=== PATIENT | male | born 1960 | race Caucasian/White ===

== ENCOUNTER 2018-11-11 13:36 | Emergency (ER) | payer OTHER, BC ==
[~2018-11-11] VITALS: Ht 175.3 cm; Wt 74.1 kg
[2018-11-11 13:39] VITALS: Ht 175.3 cm; Wt 74.1 kg
[2018-11-11] MEDS ORDERED: SOD CHLORIDE 0.9% 1,000 ML IV STA (14:50)
[2018-11-11] MEDS ORDERED: MECLIZINE 12.5 MG TAB PO ONE (15:00)
[2018-11-11] MEDS ORDERED: LORAZEPAM 2 MG INJ IV ONE (15:00)
--- NOTE | 2018-11-11 15:22 | ERD ---
ER Documentation Chief Complaint Chief Complaint DIZZINESS SINCE FRIDAY , VOMITING TODAY HPI 58-year-old male no significant past medical history who presents to the emergency room and dizziness. The patient describes approximately 4 to 5 days of symptoms that include sudden onset and sudden offset of room spinning sensation. This usually occurs when turning his head from side to side. Worse when looking left. Patient denies any headache fevers chills chest pain or shortness of breath. He denies any slurred speech, ataxic gait or clumsiness symptoms are moderate. ROS All systems reviewed and are negative except as per history of present illness. Medications Home Meds Active Scripts Meclizine Hcl* (Meclizine Hcl*) 25 Mg Tablet, 25 MG PO Q8H PRN for DIZZINESS, #20 TAB Prov:SOFIYA SEVILLA MD 11/11/18 Allergies Allergies: Coded Allergies: No Known Allergy (Unverified , 11/11/18) PMhx/Soc Medical and Surgical Hx: pt denies Medical Hx, pt denies Surgical Hx Hx Alcohol Use: No Hx Substance Use: No Hx Tobacco Use: No Smoking Status: Never smoker FmHx Family History: No diabetes Physical Exam Vitals Vital Signs Date Temp Pulse Resp B/P (MAP) Pulse Ox O2 O2 Flow FiO2 Time Delivery Rate 11/11/18 97.9 76 18 134/77 98 13:39 (96) Physical Exam General: Well developed, well nourished, no acute distress Head: Normocephalic, atraumatic. Eyes: Pupils equally reactive, EOM intact ENT: Moist mucous membranes Neck: Supple, no lymphadenopathy Respiratory: Lungs clear bilaterally, no distress Cardiovascular: RRR, no murmurs, rubs, or gallops Abdominal: Soft, non-tender, non-distended, no peritoneal signs : Deferred MSK: No edema, no unilateral swelling, 5/5 strength Neurologic: Alert and oriented, moving all extremities, normal speech, no focal weakness, no cerebellar signs, reproducible horizontal nystagmus when looking to the left. No vertical nystagmus or rotary nystagmus. Normal rapid alternating movements. Steady gait. Skin: No rash Psych: Normal mood Results 24 hrs Laboratory Tests Test 11/11/18 15:14 Bedside Glucose 159 mg/dL Current Medications Medications Dose Sig/Melody Start Time Status Last (Trade) Ordered Route PRN Stop Time Admin Dose Reason Admin Sodium 1,000 ml @ Q1H STAT 11/11/18 DC 11/11/18 Chloride 1,000 mls/hr IV 14:50 14:57 11/11/18 15:49 Lorazepam 0.5 mg ONCE ONCE 11/11/18 DC 11/11/18 (Ativan) IV 15:00 14:57 11/11/18 15:01 Meclizine 25 mg ONCE ONCE 11/11/18 DC 11/11/18 HCl PO 15:00 14:57 (Antivert) 11/11/18 15:01 Procedures/MDM EKG, MONITORS, & DIAGNOSTIC IMAGING: CT brain: No acute process per radiologist read MEDICAL DECISION MAKING: Patient's presentation is consistent with likely benign positional vertigo. He has reproducible horizontal nystagmus and reproducible symptoms. He has no other neurologic findings that are suggestive of stroke or central process. Patient will benefit from CT brain to rule out mass or significant hemorrhage. Low concern for this process. Patient will benefit from symptom control. If symptoms persist greater than 1 week outpatient follow-up with primary care physician and possible referral to neurologist was recommended. ER COURSE: * IV fluids Ativan and meclizine provided with dramatic improvement of symptomatology. At this point the patient can be safely discharged home. CT brain is negative. * Return precautions were discussed and understood CONSULTATION: None DISPOSITION PLAN: The patient does not have an identifiable emergent medical condition that warrants inpatient hospitalization at this time. The patient is deemed safe for discharge with outpatient follow-up. We discussed follow up with the patient's primary care doctor within 24 to 48 hours as needed. We also discussed return to the emergency room for worsening symptoms or worsening condition. Outpatient referral: None required Discharge Medications: Meclizine Departure Diagnosis: Primary Impression: BPV (benign positional vertigo) Laterality: unspecified laterality Qualified Codes: H81.10 - Benign paroxysmal vertigo, unspecified ear Condition: Stable SOFIYA SEVILLA MD Nov 11, 2018 15:22
[2018-11-11] MEDS ORDERED: MECL-77 PO (16:25)
[2018-11-11 16:55] VITALS: BP 110/79; PULSE 67; RESP 16
== END 2018-11-11 16:56 | disposition home or self-care (01) ==
LOC: E/R 13:36
DX: H81.10 Benign paroxysmal vertigo, unspecified ear (principal); R40.2142 Coma scale, eyes open, spontaneous, at arrival to emergency department; R40.2362 Coma scale, best motor response, obeys commands, at arrival to emergency department; R40.2252 Coma scale, best verbal response, oriented, at arrival to emergency department
CPT/HCPCS: 70450; 82962; 96374; 99285; J2060; J7030

== ENCOUNTER 2018-12-16 14:20 | Emergency (ER) | payer OTHER, BC ==
[~2018-12-16] VITALS: Wt 75.0 kg
[~2018-12-16 14:20] MED LIST: LORA1TAB PO; MECL-77 PO; MECL12.574 PO
[2018-12-16] MEDS ORDERED: SOD CHLORIDE 0.9% 1,000 ML IV STA (15:05)
--- NOTE | 2018-12-16 15:19 | ERD ---
ER Documentation Chief Complaint Chief Complaint dizziness and nausea HPI 58-year-old male with no significant past medical history who presents to the emergency room with compaint of dizziness. Patient states that started last night. Patient states he had a similar episode approximately 1 month ago for which he came to the ER and was diagnosed with BPV. In addition they did a CT scan in the ER and results were negative. Desribes the dizziness as a spinning sensation which is made worse when he turns his head suddenly. States that he took one meclizine at 6 AM this morning but did not help. Patient states he is having some difficulty ambulating due to the unsteady gait. Patient denies any headache, fevers, chills, chest pain, ear pain, tinnitus, lightheadedness, shortness of breath, numbness, weakness, vision difficulties, neck stiffness. ROS All systems reviewed and are negative except as per history of present illness. Medications Home Meds Active Scripts Lorazepam* (Lorazepam*) 1 Mg Tablet, 1 MG PO Q8, #10 TAB Prov:MARLENY MOSS 12/16/18 Meclizine Hcl* (Antivert*) 12.5 Mg Tab, 25 MG PO Q6H PRN for DIZZINESS, #20 TAB Prov:MARLENY MOSS 12/16/18 Meclizine Hcl* (Meclizine Hcl*) 25 Mg Tablet, 25 MG PO Q8H PRN for DIZZINESS, #20 TAB Prov:SOFIYA SEVILLA MD 11/11/18 Allergies Allergies: Coded Allergies: No Known Allergy (Unverified , 12/16/18) PMhx/Soc Medical and Surgical Hx: pt denies Medical Hx, pt denies Surgical Hx Hx Alcohol Use: No Hx Substance Use: No Hx Tobacco Use: No Smoking Status: Never smoker FmHx Family History: No diabetes, No coronary disease, No other Physical Exam Vitals Vital Signs Date Temp Pulse Resp B/P (MAP) Pulse Ox O2 O2 Flow FiO2 Time Delivery Rate 12/16/18 97.5 66 20 139/79 99 14:22 (99) Physical Exam Const: No acute distress Head: Atraumatic Eyes: Normal Conjunctiva. No vertical or horizontal nystagmus. TMs are intact. Nonerythematous or edematous. ENT: Normal External Ears, Nose and Mouth. Neck: Full range of motion. No meningismus. Resp: Clear to auscultation bilaterally Cardio: Regular rate and rhythm, no murmurs Abd: Soft, non tender, non distended. Normal bowel sounds Skin: No petechiae or rashes Back: No midline or flank tenderness Ext: No cyanosis, or edema Neur: Awake and alert Psych: Normal Mood and Affect Neuro: M/S: Alert and oriented Face: EOMI, face and pharynx with normal sensation and function Motor: Normal strength throughout Sensation: Normal sensation throughout Speech: Normal Cerebel: Normal coordination Impaired heel-to-toe gait. Regular gait is intact. Normal finger to nose DTR: 2+ and symmetric upper/lower extremities Result Diagram: 12/16/18 1515 12/16/18 1515 Results 24 hrs Laboratory Tests Test 12/16/18 15:15 White Blood Count 6.4 10^3/ul Red Blood Count 5.27 10^6/ul Hemoglobin 14.9 g/dl Hematocrit 44.7 % Mean Corpuscular Volume 84.8 fl Mean Corpuscular Hemoglobin 28.3 pg Mean Corpuscular Hemoglobin Concent 33.3 g/dl Red Cell Distribution Width 12.6 % Platelet Count 207 10^3/UL Mean Platelet Volume 10.2 fl Immature Granulocytes % 0.200 % Neutrophils % 71.5 % Lymphocytes % 21.1 % Monocytes % 5.5 % Eosinophils % 0.9 % Basophils % 0.8 % Nucleated Red Blood Cells % 0.0 /100WBC Immature Granulocytes # 0.010 10^3/ul Neutrophils # 4.6 10^3/ul Lymphocytes # 1.4 10^3/ul Monocytes # 0.4 10^3/ul Eosinophils # 0.1 10^3/ul Basophils # 0.1 10^3/ul Nucleated Red Blood Cells # 0.0 10^3/ul Sodium Level 141 mmol/L Potassium Level 4.6 mmol/L Chloride Level 105 mmol/L Carbon Dioxide Level 26 mmol/L Anion Gap 10 Blood Urea Nitrogen 9 mg/dl Creatinine 0.81 mg/dl Est Glomerular Filtrat Rate mL/min > 60 mL/min Glucose Level 153 mg/dl Calcium Level 9.9 mg/dl Total Bilirubin 0.7 mg/dl Direct Bilirubin 0.00 mg/dl Indirect Bilirubin 0.7 mg/dl Aspartate Amino Transf (AST/SGOT) 27 IU/L Alanine Aminotransferase (ALT/SGPT) 28 IU/L Alkaline Phosphatase 68 IU/L Total Protein 7.8 g/dl Albumin 4.5 g/dl Globulin 3.30 g/dl Albumin/Globulin Ratio 1.36 Current Medications Medications Dose Sig/Melody Start Time Status Last (Trade) Ordered Route PRN Stop Time Admin Dose Reason Admin Sodium 1,000 ml @ Q1H STAT 12/16/18 DC 12/16/18 Chloride 1,000 mls/hr IV 15:05 15:21 12/16/18 16:04 Lorazepam 0.5 mg ONCE ONCE 12/16/18 DC 12/16/18 (Ativan) IV 15:30 15:21 12/16/18 15:31 Meclizine 25 mg ONCE ONCE 12/16/18 DC 12/16/18 HCl PO 15:30 15:21 (Antivert) 12/16/18 15:31 Procedures/MDM MDM: EKG: Rate/Rhythm: Normal Sinus Rhythm QRS, ST, T-waves: No changes consistent w/ acute ischemia Impression: No evidence of ischemia or arrhythmia Patient's presentation is consistent with BPV. There is no horizontal nystagmus noted. Patient did not have headache or any focal neurological deficits. Patient was given meclizine, fluids, and Ativan in the ER, and is able to ambulate without difficulty and stated that his vertigo had resolved. CT was ordered 1 month ago and was within normal limits so I do not feel that repeat CT would be necessary at this time will just expose patient to further radiationIn addition, CBC and CMP within normal limits of infection is unlikely etiology. Meclizine administered with patient tolerating it well and stating improvement in symptoms. Patient also given 1 L of IV fluids as well as Ativan. Patient was advised that vertigo is a inner ear problem he would need to see an ENT. I gave the number to to ENT is agreed to follow-up with them. I have low suspicion for CVA, intercranial mass, elevated intercranial pressure, due to patient history and normal neuro exam. I have low suspicion for meningitis, cardiac pathology, hemorrhage, dehydration, hypovolemia, hypoglycemia, or electrolyte imbalance based on labs, exam, and patient history. No evidence of meningitis,. Most likely etiology is benign paroxysmal vertigo. Patient's neurologic symptoms have been evaluated in the department and have stabilized. At discharge, patient given Rx for meclizine and counseled on how to do the Dino maneuver. Patient is appropriate for outpatient management. At this time, patient is stable for discharge and outpatient management. I have instructed the patient to follow-up with his/her primary care physician in 1-2 days. I have discussed with the patient the possibility of needing to see a specialist for further workup and imaging studies if symptoms persist. I have instructed the patient to promptly return to the ER for any new or worsening symptoms including but not limited to increased pain, fever, nausea, vomiting, weakness or LOC. The patient and/or family expressed understanding of and agree ment with this plan. All questions were answered. Home care instructions were provided. DISCLAIMER: Inadvertent spelling and grammatical errors are likely due to EHR/dictation software use and do not reflect on the overall quality of patient care. Also, please note that the electronic time recorded on this note does not necessarily reflect the actual time of the patient encounter. ER attending note: Case was discussed in detail with the advanced practice provider. Patient was seen independently Diagnostic assessment reviewed. I agree with the assessment and care plan as discussed. Briefly, this is a 58-year-old presents with what appears to be peripheral vertigo. Patient is already had a CT scan that demonstrated no signs of intracranial concerns recently. Patient will undergo supportive care as well as diagnostic test to check for infection and eventually concerns which is less of a likely issue. Departure Condition: Stable MARLENY MOSS Dec 16, 2018 15:19 RAFAEL BRAMBILA Dec 16, 2018 15:36
[2018-12-16] MEDS ORDERED: LORAZEPAM 2 MG INJ IV ONE (15:30)
[2018-12-16] MEDS ORDERED: MECLIZINE 12.5 MG TAB PO ONE (15:30)
[2018-12-16 16:54] VITALS: BP 131/74; PULSE 74; RESP 20
== END 2018-12-16 17:02 | disposition home or self-care (01) ==
LOC: FTE 14:20
DX: R42 Dizziness and giddiness (principal)
CPT/HCPCS: 80053; 85025; 93005; 96374; 99284; J2060; J7030